=== PATIENT | female | born 1980 | race Caucasian/White ===

== ENCOUNTER 2017-08-13 18:59 | Emergency (ER) | payer OTHER ==
[~2017-08-13] VITALS: Ht 165.1 cm; Wt 74.8 kg
--- NOTE | 2017-08-13 19:05 | NUR ---
PT TO ER BED 15. 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 PT REFUSING TO ANSWER ANY QUESTIONS. PT PLACED IN GOWN AND ON TESTER WASTE DISPOSAL LEAKAGE. VSS/RESP EVEN UNLABORED/NAD NOTED/SKIN WARM AND DRY/DENIES N-V PER EMS/AFEBRILE. AT BEDSIDE FOR EVAL.
[2017-08-13] MEDS ORDERED: diphenhydrAMINE HCL 50 MG/ML VIAL ONE ×2 (19:18→19:30)
[2017-08-13] MEDS ORDERED: HALOPERIDOL LACTATE INJ 5 MG/ML VIAL ONE ×2 (19:18→19:31)
[2017-08-13] MEDS ORDERED: LORAZEPAM INJ 2 MG/ML VIAL ONE ×2 (19:19→19:31)
[2017-08-13] MEDS ORDERED: LORAZEPAM INJ 2 MG/ML VIAL IVP ONE (19:30)
[2017-08-13] MEDS ORDERED: HALOPERIDOL LACTATE INJ 5 MG/ML VIAL IM ONE (19:30)
[2017-08-13] MEDS ORDERED: diphenhydrAMINE HCL 50 MG/ML VIAL IV ONE (19:30)
[2017-08-13] MEDS ORDERED: IV NS 0.9% 1,000 ML BAG IV ONE (19:30)
--- NOTE | 2017-08-13 19:34 | NUR ---
medicated pt as ordered
[2017-08-13 19:36] LABS: BASOPHILS # (AUTO) 0.1 /CMM (0.0-0.2); BASOPHILS % (AUTO) 1.8 % (0.0-2.0); EOSINOPHILS % (AUTO) 0.1 % (0.0-6.0); HEMATOCRIT 37 % (33-45); HEMOGLOBIN 12.8 g/dL (11.5-14.8); LYMPHOCYTES % (AUTO) 15.2 % (20.0-44.0); MEAN CORPUSCULAR HGB CONC 35 g/dl (31.0-36.0); MEAN CORPUSCULAR VOLUME 87 fL (82-100); MONOCYTES # (AUTO) 0.5 /CMM (0.1-1.30); MONOCYTES % (AUTO) 7.6 % (2.0-12.0); NEUTROPHILS # (AUTO) 5.2 /CMM (1.8-8.9); NEUTROPHILS % (AUTO) 75.3 % (43.0-81.0); PLATELET COUNT (AUTO) 242 /CMM (150-450); RDW COEFFICIENT OF VARIATION 12.3 (11.5-15.0); RED BLOOD CELL COUNT(AUTO) 4.25 MIL/uL (4.0-5.2); WHITE BLOOD COUNT (AUTO) 6.8 K/uL (4.3-11.0)
[2017-08-13 19:47] LABS: CALCIUM, SERUM 8.5 mg/dL (8.5-10.1); CARBON DIOXIDE 26 mmol/L (21-32); CHLORIDE 98 mmol/L (98-107); GLUCOSE 117 mg/dL (74-106); POTASSIUM 3.9 mmol/L (3.5-5.1); SODIUM SERUM 133 mmol/L (136-145); UREA NITROGEN, BLOOD 12 mg/dL (7-18)
[2017-08-13 20:04] LABS: ALANINE AMINOTRANSFERASE 33 U/L (12-78); ALBUMIN 2.5 g/dL (3.4-5.0); ALCOHOL, BLOOD < 3 mg/dL (0-0); ALKALINE PHOSPHATASE 70 U/L (46-116); ASPARTATE AMINOTRANSFERASE 34 U/L (15-37); BILIRUBIN,DIRECT 0.1 mg/dL (0.0-0.2); BILIRUBIN,TOTAL 0.4 mg/dL (0.2-1.0); TOTAL PROTEIN, SERUM 7.3 g/dL (6.4-8.2)
[2017-08-13 20:05] LABS: ACETAMINOPHEN 0 ug/ml (10-30)
--- NOTE | 2017-08-13 20:20 | NUR ---
IN&OUT CATH PER MD ORDERS USING SALESPERSON SURGICAL APPLIANCES, 200ML CLEAR URINE OUTPUT NOTED. URINE SPECIMEN OBTAINED AND SENT TO THE LAB.
[2017-08-13 20:41] LABS: APPEARANCE,URINE Clear (CLEAR); BILIRUBIN,URINE Negative (NEGATIVE); BLOOD, URINE Trace-intact Ery/uL (NEGATIVE); COLOR,URINE Yellow (YELLOW); KETONES,URINE Negative (NEGATIVE); LEUKOCYTE ESTERASE ,URINE Negative (NEGATIVE); NITRITE, URINE Negative (NEGATIVE); PH,URINE 7.5 (5.0-8.0); PROTEIN,URINE 30 mg/dl (NEGATIVE); UGLUCOSE Negative (NEGATIVE)
[2017-08-13 20:53] LABS: BACTERIA,URINE Few /HPF (None Seen); SQUAMOUS EPITHELIAL CELL,UR Few /HPF (None Seen)
--- NOTE | 2017-08-13 21:48 | NUR ---
PT RESTING QUIETLY, AROUSES TO TOUCH AND VOICE. RN TO CONTINUE MONITORING PROVIDING SAFETY/COMFORT MEASURES.
--- NOTE | 2017-08-14 01:20 | NUR ---
PT RESTING QUIETLY, AROUSES EASILY TO VOICE. RN WILL CONTINUE TO MONITOR PROVIDING SAFETY/COMFORT MEASURES.
--- NOTE | 2017-08-14 04:19 | NUR ---
NO CHANGES AT THIS TIME. PT RESTING QUIETLY, AROUSES EASILY TO VOICE. RN WILL CONTINUE TO MONITOR PROVIDING SAFETY/COMFORT MEASURES. VSS.
--- NOTE | 2017-08-14 06:03 | NUR ---
IV removed. Catheter intact and site benign. Pressure and 4x4 applied to site. No bleeding noted. Patient is awake and alert to self, day, and place. Patient ambulatory with a steady gait. Patient discharged to home in stable condition. Written and verbal after care instructions given. Patient verbalizes understanding of instruction.
[2017-08-14 06:05] VITALS: BP 124/81
== END 2017-08-14 06:07 | disposition home or self-care (01) ==
LOC: EDBD 19:02 → ER 19:02
DX: F19.10 Other psychoactive substance abuse, uncomplicated (principal); Z60.2 Problems related to living alone
CPT/HCPCS: 36415; 80048-TC; 80076-TC; 80305; 81000-TC; 84703-TC; 85025-TC; 87086-TC; A4606; G0480; J1200; J1630; J2060; J7030; Z7610